=== PATIENT | male | born 1965 | race Caucasian/White ===

== ENCOUNTER 2018-08-29 19:32 | Emergency (ER) | payer OTHER ==
--- NOTE | 2018-08-29 20:20 | EDM.PDOC ---
ED HPI GENERAL MEDICAL PROBLEM - General Chief Complaint: Lower Extremity Injury/Pain Stated Complaint: TWISTED RIGHT KNEE Time Seen by Provider: 08/29/18 20:35 Source of Information: Reports: Patient, Family History Limitations: Reports: No Limitations - History of Present Illness INITIAL COMMENTS - FREE TEXT/NARRATIVE: 53-year-old male with a right knee injury. He twisted his knee 2 weeks ago, causing pain but it seemed to be getting better, but today was mowing the lawn and stepped on an uneven surface and his knee "gave out". It's now very painful to bear weight, and most of his pain is along the anterior and medial tibial plateau. There is no swelling or effusion. Onset: Sudden Duration: Hour(s): (Within the last 2 hours) Location: Reports: Lower Extremity, Right Quality: Reports: Stabbing Severity: Moderate Worsens with: Reports: Other (Weightbearing) Associated Symptoms: Reports: No Other Symptoms Treatments [employer]: Reports: Other (see below) Other Treatments [employer]: unknown Right Knee Pain Score (Numeric/FACES): 6 - Related Data Allergies Allergy/AdvReac Type Severity Reaction Status Date / Time amoxicillin Allergy Rash Verified 08/29/18 20:31 Home Meds: Home Meds Acetaminophen/oxyCODONE [Percocet 325-5 MG] 1 - 2 each PO Q6HR 08/29/18 [History ] Hydrochlorothiazide [Microzide] 12.5 mg PO DAILY 08/29/18 [History] Metoprolol Tartrate [Lopressor] 25 mg PO Q12HR 08/29/18 [History] Simvastatin [Zocor] 40 mg PO BEDTIME 08/29/18 [History] cloNIDine HCl [Clonidine HCl ER] 0.1 mg PO ASDIRECTED 08/29/18 [History] fentaNYL [Duragesic] 1 patch TD Q72H 08/29/18 [History] Review of Systems - Review of Systems Review Of Systems: See Below Constitutional: Denies: Fever Respiratory: Reports: No Symptoms Cardiovascular: Reports: No Symptoms Neurological: Reports: Other (Patient has chronic pain) ED EXAM, GENERAL - Physical Exam Exam: See Below Exam Limited By: No Limitations General Appearance: Alert, No Apparent Distress, Other (While sitting, he is fairly comfortable) Head: Atraumatic Respiratory/Chest: No Respiratory Distress Extremities: Other (Exam is otherwise limited to the lower extremities. His knees are symmetric, there is no effusion or deformities. On palpation the patient is tender over the anterior tibial plateau and medial joint line. Anterior and posterior stress is solid.) Course - Vital Signs Last Recorded V/S: Last Vital Signs Temp 97.5 F 08/29/18 20:41 Pulse 88 08/29/18 20:41 Resp 14 08/29/18 20:41 BP 178/84 H 08/29/18 20:41 Pulse Ox 97 08/29/18 20:41 - Orders/Labs/Meds Orders: Active Orders 24 hr Category Date Time Status Knee 3V Rt [CR] Stat Exams 08/29/18 20:50 Taken DME for Discharge [COMM] Stat Oth 08/29/18 20:50 Ordered - Re-Assessments/Exams Free Text/Narrative Re-Assessment/Exam: 08/29/18 20:53 Three-view knee x-ray of the right knee was obtained. 08/29/18 21:20 X-ray shows no acute fracture. There does appear to be a chronic calcified foreign body in the posterior knee which likely is not involved in his symptoms. He was placed in a knee immobilizer and given crutches, and encouraged to increase activity as tolerated. A copy of his x-ray was given to the patient and he can recheck next week if not improving satisfactorily. Departure - Departure Time of Disposition: 22:22 Disposition: Home, Self-Care 01 Condition: Good Clinical Impression: Injury of meniscus of right knee Qualifiers: Encounter type: initial encounter Qualified Code(s): S83.8X1A - Sprain of other specified parts of right knee, initial encounter - Discharge Information Instructions: Knee Sprain, Adult Referrals: PCP,None [Primary Care Provider] - Forms: ED Department Discharge Care Plan Goals: Use immobilizer and crutches for the next several days then increase activity as tolerated. Recheck next week if not improving satisfactorily. - My Orders Last 24 Hours: My Active Orders 08/29/18 20:50 Knee 3V Rt [CR] Stat DME for Discharge [COMM] Stat - Assessment/Plan Last 24 Hours: My Active Orders 08/29/18 20:50 Knee 3V Rt [CR] Stat DME for Discharge [COMM] Stat
--- NOTE | 2018-08-30 13:58 | CRLCR ---
Final Report: INDICATION: Knee injury COMPARISON: none TECHNIQUE: Three-view right knee FINDINGS: The bones are anatomically aligned. There is no evidence of a fracture. There is degenerative joint space narrowing and mild hypertrophic spurring within the patellofemoral joint. The soft tissues appear normal. IMPRESSION: No fracture identified. Dictated by Rommel Lloyd MD @ 08/29/2018 10:00:49 PM Dictated by: Rommel Lloyd MD @ 08/29/2018 22:00:57 Signed by: Rommel Lloyd MD @08/29/2018 10:00:57 PM (Electronic Signature) [facility]
== END 2018-08-29 22:26 | disposition home or self-care (01) ==
LOC: JP.ED 19:32
DX: S83.8X1A Sprain of other specified parts of right knee, initial encounter (principal); X50.1XXA Overexertion from prolonged static or awkward postures, initial encounter
CPT/HCPCS: 73562-RT; 99283-25